=== PATIENT | male | born 1985 | race Caucasian/White ===

== ENCOUNTER 2020-09-07 19:36 | Inpatient (IN) | payer SELFPAY ==
[2020-09-07] MEDS ORDERED: Diazepam 10 MG/2 ML SYRINGE ONE (19:55)
[2020-09-07] MEDS ORDERED: Ondansetron ODT 4 MG TAB PO PRN (21:27)
[2020-09-07] MEDS ORDERED: Loperamide HCl 2 MG CAP PO PRN (21:27)
[2020-09-07] MEDS ORDERED: Multivitamins, Adult 10 ML, Folic Acid 1 MG, Thiamine HCl 100 MG in Dextrose 5 %-0.45 %... IV SCH (21:30)
[2020-09-07 22:40] VITALS: BMI 25.0
[2020-09-07] MEDS: D5 0.9% NS w/ 20 mEq KCl 1,000 ML IV SCH (23:00)
[2020-09-07] MEDS ORDERED: Thiamine HCl 200 MG/2 ML VIAL SLOW IVP SCH (23:00)
[2020-09-07] MEDS ORDERED: Folic Acid 1 MG, Multivitamins, Adult 10 ML in Dextrose 5 %-0.45 % NaCl 1,000 ML IV SCH (23:00)
[2020-09-07] MEDS ORDERED: Multivit, Adult Inj 10 ML VIAL ONE (23:06)
[2020-09-08 05:19] LABS: #Eosinphils 0.1 10x3/uL (0.0-0.5); #Monocytes 0.8 10x3/uL (0.0-1.1); #Neutrophils 3.7 10x3/uL (1.5-8.4); %Basophils 0.5 % (0.0-2.0); %Eosinophils 1.5 % (0.0-6.0); %Monocytes 11.8 % (0.0-10.0); Hemoglobin 12.6 g/dL (13.5-17.5); Mean Corpuscular HGB CONC 34.7 g/dL (32.0-36.0); Mean Corpuscular Hemoglobin 29.7 pg (27.0-33.0); Mean Corpuscular Volume 85.6 fl (81.2-95.1); Mean Platelet Volume 11.4 fl (7.4-10.4); Platelet Count 204 10x3/uL (150-450); RBC Distribution Width 13.2 % (11.5-14.5); Red Blood Cell (RBC) Count 4.24 10x6/uL (4.32-5.72); White Blood Cell (WBC) Count 6.6 10x3/uL (3.5-10.5)
[2020-09-08 05:28] LABS: ALT (SGPT) 44 U/L (8-55); AST (SGOT) 34 U/L (5-34); Albumin 3.4 g/dL (3.5-5.0); Alkaline Phosphatase 52 U/L (40-110); Anion Gap 14 mmol/L (10-20); BUN (Urea Nitrogen) 12 mg/dL (8.9-20.6); Bilirubin, Total 0.7 mg/dL (0.2-1.2); CK (CPK) 697 U/L (30-200); Calc. Creatinine Clearance 166 mL/min (70-130); Calcium 7.8 mg/dL (7.8-10.44); Carbon Dioxide 20 mmol/L (22-29); Chloride 110 mmol/L (98-107); Glucose 106 mg/dL (70-105); Magnesium 2.1 mg/dL (1.6-2.6); Potassium 3.5 mmol/L (3.5-5.1); Protein, Total 5.4 g/dL (6.0-8.3); Sodium 140 mmol/L (136-145)
[2020-09-08] MEDS: Lorazepam 2 MG/ML VIAL SLOW IVP PRN ×3 (07:27→20:17)
[2020-09-08] MEDS: Enoxaparin Sodium 40 MG/0.4 ML SYRINGE SC SCH (08:34)
[2020-09-08] MEDS: Famotidine 20 MG TAB PO SCH ×2 (08:35→20:17)
[2020-09-08] MEDS: D5 0.9% NS w/ 20 mEq KCl 1,000 ML IV SCH ×3 (08:38→20:17)
[2020-09-08 13:29] LABS: SARS-CoV-2 NAA Rapid Test Not Detected (NotDetected)
[2020-09-08] MEDS: Ondansetron PF 4 MG/2 ML Vial IVP PRN ×2 (13:39→20:18)
[2020-09-09 05:37] LABS: #Eosinphils 0.1 10x3/uL (0.0-0.5); #Monocytes 0.5 10x3/uL (0.0-1.1); #Neutrophils 2.5 10x3/uL (1.5-8.4); %Basophils 0.6 % (0.0-2.0); %Eosinophils 2.4 % (0.0-6.0); %Lymphocytes 35.6 % (18.0-47.0); %Neutrophils 51.2 % (40.0-75.0); Hemoglobin 12.6 g/dL (13.5-17.5); Mean Corpuscular HGB CONC 33.3 g/dL (32.0-36.0); Mean Corpuscular Hemoglobin 29.9 pg (27.0-33.0); Mean Corpuscular Volume 89.8 fl (81.2-95.1); Mean Platelet Volume 11.4 fl (7.4-10.4); Platelet Count 218 10x3/uL (150-450); RBC Distribution Width 13.3 % (11.5-14.5); Red Blood Cell (RBC) Count 4.21 10x6/uL (4.32-5.72); White Blood Cell (WBC) Count 4.9 10x3/uL (3.5-10.5)
[2020-09-09 05:49] LABS: Phosphorus 2.3 mg/dL (2.3-4.7)
[2020-09-09] MEDS: Lorazepam 2 MG/ML VIAL SLOW IVP PRN ×3 (06:05→18:50)
[2020-09-09] MEDS: D5 0.9% NS w/ 20 mEq KCl 1,000 ML IV SCH ×3 (06:38→21:37)
[2020-09-09] MEDS: Enoxaparin Sodium 40 MG/0.4 ML SYRINGE SC SCH (08:39)
[2020-09-09] MEDS: Famotidine 20 MG TAB PO SCH ×2 (08:39→21:35)
[2020-09-09] MEDS: Acetaminophen 325 MG TAB PO PRN (16:17)
[2020-09-09] MEDS: Ondansetron PF 4 MG/2 ML Vial IVP PRN (16:18)
[2020-09-09] MEDS: MULTIVITAMINS IV SCH ×2 (22:18)
[2020-09-09] MEDS: FOLIC ACID IV SCH ×2 (22:18)
[2020-09-09] MEDS: THIAMINE HCL IV SCH ×2 (22:18)
[2020-09-09] MEDS: [UNRECOGNIZED DRUG - OTHER] IV SCH ×2 (22:18)
[2020-09-10] MEDS: D5 0.9% NS w/ 20 mEq KCl 1,000 ML IV SCH ×3 (05:37→21:29)
[2020-09-10] MEDS: Lorazepam 2 MG/ML VIAL SLOW IVP PRN (05:48)
[2020-09-10 06:16] LABS: #Eosinphils 0.1 10x3/uL (0.0-0.5); #Monocytes 0.6 10x3/uL (0.0-1.1); %Basophils 0.5 % (0.0-2.0); %Eosinophils 1.9 % (0.0-6.0); %Lymphocytes 34.2 % (18.0-47.0); %Monocytes 10.6 % (0.0-10.0); %Neutrophils 52.6 % (40.0-75.0); Hemoglobin 13.3 g/dL (13.5-17.5); Mean Corpuscular HGB CONC 33.2 g/dL (32.0-36.0); Mean Corpuscular Hemoglobin 29.8 pg (27.0-33.0); Mean Corpuscular Volume 89.9 fl (81.2-95.1); Mean Platelet Volume 11.8 fl (7.4-10.4); Platelet Count 235 10x3/uL (150-450); RBC Distribution Width 13.1 % (11.5-14.5); Red Blood Cell (RBC) Count 4.46 10x6/uL (4.32-5.72); White Blood Cell (WBC) Count 5.7 10x3/uL (3.5-10.5)
[2020-09-10] MEDS: Ondansetron PF 4 MG/2 ML Vial IVP PRN (06:21)
[2020-09-10 06:27] LABS: ALT (SGPT) 36 U/L (8-55); AST (SGOT) 19 U/L (5-34); Albumin 3.5 g/dL (3.5-5.0); Alkaline Phosphatase 48 U/L (40-110); Anion Gap 11 mmol/L (10-20); BUN (Urea Nitrogen) 5 mg/dL (8.9-20.6); Bilirubin, Total 0.4 mg/dL (0.2-1.2); Calc. Creatinine Clearance 158 mL/min (70-130); Calcium 8.6 mg/dL (7.8-10.44); Carbon Dioxide 25 mmol/L (22-29); Chloride 110 mmol/L (98-107); Glucose 103 mg/dL (70-105); Potassium 4.8 mmol/L (3.5-5.1); Protein, Total 5.5 g/dL (6.0-8.3); Sodium 141 mmol/L (136-145)
[2020-09-10] MEDS: Famotidine 20 MG TAB PO SCH ×2 (09:47→21:28)
[2020-09-10] MEDS: Sucralfate 1 GM TAB PO SCH ×2 (09:47→21:29)
[2020-09-10] MEDS: chlordiazePOXIDE HCl 25 MG CAP PO SCH ×3 (09:47→21:28)
[2020-09-10] MEDS: Enoxaparin Sodium 40 MG/0.4 ML SYRINGE SC SCH (10:01)
[2020-09-10] MEDS: Acetaminophen 325 MG TAB PO PRN (16:23)
[2020-09-10] MEDS ORDERED: risperiDONE 1 MG TAB PO SCH (21:00)
[2020-09-11] MEDS: D5 0.9% NS w/ 20 mEq KCl 1,000 ML IV SCH (06:39)
[2020-09-11] MEDS: chlordiazePOXIDE HCl 25 MG CAP PO SCH (08:42)
[2020-09-11] MEDS: Sucralfate 1 GM TAB PO SCH (08:42)
[2020-09-11] MEDS: Famotidine 20 MG TAB PO SCH (08:42)
[2020-09-11] MEDS: Enoxaparin Sodium 40 MG/0.4 ML SYRINGE SC SCH (08:44)
[2020-09-11 12:52] VITALS: BP 119/74; TEMP 98
== END 2020-09-11 14:05 | disposition home or self-care (01) | DRG 897 ==
LOC: CSHERS 19:36 → CSHTELE 22:30
PROVIDERS: ADMIT Internal Medicine; ATTEND Internal Medicine
DX: F19.139 Other psychoactive substance abuse with withdrawal, unspecified (principal); E87.2 Acidosis; M62.82 Rhabdomyolysis; Z20.822 Contact with and (suspected) exposure to COVID-19; G25.2 Other specified forms of tremor; Z83.3 Family history of diabetes mellitus; Z82.49 Family history of ischemic heart disease and other diseases of the circulatory system; E86.0 Dehydration; R11.2 Nausea with vomiting, unspecified; F31.9 Bipolar disorder, unspecified; F10.139 Alcohol abuse with withdrawal, unspecified; K21.9 Gastro-esophageal reflux disease without esophagitis; F41.9 Anxiety disorder, unspecified; F20.9 Schizophrenia, unspecified
CPT/HCPCS: 36415; 80053; 82550; 83605; 83735; 84100; 85025; 87635; 96374; J1650; J2060; J2405; J3360; J3411; J3480; J7042; U0002; U0003; U0005

== ENCOUNTER 2021-11-06 05:24 | Emergency (ER) | payer SELFPAY ==
[2021-11-06] MEDS ORDERED: Promethazine HCl 25 MG/ML VIAL ONE (05:57)
[2021-11-06 06:33] LABS: Hemoglobin 17.4 g/dL (13.5-17.5); Mean Corpuscular HGB CONC 35.5 g/dL (32.0-36.0); Mean Corpuscular Hemoglobin 30.3 pg (27.0-33.0); Mean Corpuscular Volume 85.4 fl (81.2-95.1); Mean Platelet Volume 11.3 fl (7.4-10.4); Platelet Count 285 10x3/uL (150-450); RBC Distribution Width 13.2 % (11.5-14.5); Red Blood Cell (RBC) Count 5.74 10x6/uL (4.32-5.72); White Blood Cell (WBC) Count 12.8 10x3/uL (3.5-10.5)
[2021-11-06 06:50] LABS: MDiff Complete? YES
[2021-11-06 06:51] LABS: ALT (SGPT) 73 U/L (8-55); AST (SGOT) 33 U/L (5-34); Albumin 4.9 g/dL (3.5-5.0); Alkaline Phosphatase 61 U/L (40-110); Anion Gap 19 mmol/L (10-20); BUN (Urea Nitrogen) 15 mg/dL (8.9-20.6); Bilirubin, Total 0.9 mg/dL (0.2-1.2); CK (CPK) 147 U/L (30-200); Calc. Creatinine Clearance 0 mL/min (70-130); Carbon Dioxide 18 mmol/L (22-29); Chloride 108 mmol/L (98-107); Globulin 3.3 g/dL (2.4-3.5); Glucose 127 mg/dL (70-105); Lipase 10 U/L (8-78); Potassium 3.7 mmol/L (3.5-5.1); Protein, Total 8.2 g/dL (6.0-8.3); Sodium 141 mmol/L (136-145)
[2021-11-06 06:56] LABS: Band 8 % (5-11); Lymphocytes 6 % (21-51); Monocytes 6 % (0-10); Neutrophil 74 % (42-75); Reactive Lymphocytes 6 % (0-10)
[2021-11-06 06:57] LABS: Platelet Morphology Comment Appears Adequate; RBC Morphology Normal
[2021-11-06] MEDS ORDERED: Dicyclomine 20 MG/2 ML VIAL ONE (07:30)
[2021-11-06] MEDS ORDERED: Lidocaine Viscous Sol 2% 15 ml UD Cup ONE (07:31)
[2021-11-06] MEDS ORDERED: Mag-Al Plus 1200 MG/1200 MG/120 MG/30 ML UDCUP ONE (07:31)
[2021-11-06] MEDS ORDERED: Pantoprazole 40 MG VIAL ONE (07:43)
[2021-11-06] MEDS ORDERED: Haloperidol Lactate 5 MG/ML VIAL ONE ×2 (08:04→09:13)
[2021-11-06 08:35] LABS: Bilirubin Neg (Negative); Blood, Urine Negative (Negative); Clarity Clear (Clear); Glucose, Urine (Dipstick) Normal (Negative); Ketone, Urine 150 mg/dL (Negative); Leukocyte Negative (Negative); Nitrite Negative (Negative); Protein, Urine (Dipstick) 30 mg/dl (Neg-Trace); Urobilinogen Normal mg/dL (Less than 2)
[2021-11-06 08:54] LABS: Bacteria/HPF Rare-Few HPF (None Seen); Mucous/LPF 1+ LPF (<2+); RBC/HPF 0-3 HPF (0-3); Squamous Epithelial None Seen HPF (0-3); WBC/HPF 0-3 HPF (0-3)
== END 2021-11-06 09:50 | disposition home or self-care (01) ==
LOC: CSHERS 05:24
DX: E86.0 Dehydration (principal); F17.220 Nicotine dependence, chewing tobacco, uncomplicated
CPT/HCPCS: 74177; 81003; 81015; 83605; 83690; 83735; 96361; 96365; 96372; 96375; 96376; C9113; J0500; J1630; J2550